=== PATIENT | female | born 1960 | race Two or more races ===

== ENCOUNTER 2016-10-31 11:22 | Inpatient (IN) | payer MEDICAID ==
[~2016-10-31] VITALS: Ht 157.5 cm; Wt 49.9 kg
[2016-10-31] MEDS ORDERED: MORPHINE IR15 MG ORAL (11:36)
[2016-10-31] MEDS ORDERED: MULTIVITAMINS1 EAC2 ORAL (11:36)
[2016-10-31] MEDS ORDERED: GABAPENTIN300 MG ORAL (11:36)
[2016-10-31] MEDS ORDERED: ASPIR 8181 MG ORAL (11:36)
[2016-10-31] MEDS ORDERED: MIRALAX17 GM ORAL (11:36)
[2016-10-31] MEDS ORDERED: Morphine Sulfate 2mg/ml Inj IVP ONE (11:45)
[2016-10-31] MEDS ORDERED: Pantoprazole Inj IVP ONE (11:45)
[2016-10-31 12:00] VITALS: BP 117/60
[2016-10-31] MEDS ORDERED: Tubing IV Cassette IV ONE (12:04)
[2016-10-31 12:10] LABS: MEAN CORPUSCULAR HEMOGLOBIN 29.5 PG (27.0-31.0); MEAN CORPUSCULAR HGB CONC 33.4 G/DL (32.0-36.0); MEAN CORPUSCULAR VOLUME 88 FL (80-99); MEAN PLATELET VOLUME 5.7 FL (6.5-10.1); PLATELET COUNT 523 K/UL (150-450); RED BLOOD COUNT 3.14 M/UL (4.20-5.40); RED CELL DISTRIBUTION WIDTH 14.9 % (11.6-14.8)
[2016-10-31 12:29] LABS: ALANINE AMINOTRANSFERASE 23 U/L (3-33); ALBUMIN/GLOBULIN RATIO 0.7 (1.0-2.7); ANION GAP 28 (5-15); ASPARTATE AMINO TRANSFERASE 74 U/L (5-40); CALCIUM 7.9 mg/dL (8.6-10.2); CARBON DIOXIDE 19 mEQ/L (20-30); CHLORIDE 95 mEQ/L (98-107); CREATININE 0.4 mg/dL (0.5-0.9); GLOMERULAR FILTRATION RATE > 60 mL/min (>60); HEMOLYSIS 1; LIPASE 17 U/L (< 60); POTASSIUM 3.9 mEQ/L (3.4-4.9); SODIUM 142 mEQ/L (135-145); TOTAL PROTEIN 6.4 g/dL (6.6-8.7)
[2016-10-31 12:33] LABS: INR 1.2 (0.9-1.1); PROTHROMBIN TIME 12.6 SEC (9.30-11.50)
[2016-10-31 12:37] LABS: TROPONIN I < 0.30 ng/mL (<=0.30)
[2016-10-31 12:40] LABS: ANISOCYTOSIS 1+; BAND NEUTROPHILS % (MANUAL) 1 % (0-8); BASOPHILS % (MANUAL) 0 % (0-2); EOSINOPHILS % (MANUAL) 0 % (0-3); LYMPHOCYTES % (MANUAL) 4 % (20-45); NEUTROPHILS % (MANUAL) 88 % (45-75); PLATELET ESTIMATE INCREASED; PLATELET MORPHOLOGY NORMAL; TOTAL CELLS COUNTED 100
[2016-10-31 12:41] LABS: HYPOCHROMASIA 1+
[2016-10-31 12:49] LABS: AMMONIA 32 umol/L (11-51)
[2016-10-31 13:41] LABS: APPEARANCE,URINE SLIGHTLY CLOUDY; KETONES,URINE 4+ (NEGATIVE); LEUKOCYTE ESTERASE ,URINE 1+ (NEGATIVE); NITRITE,URINE NEGATIVE (NEGATIVE); PH,URINE 5 (4.5-8.0); PROTEIN,URINE 2+ (NEGATIVE); UROBILINOGEN,URINE NORMAL MG/DL (0.0-1.0)
[2016-10-31 13:59] LABS: BACTERIA,URINE FEW /HPF; RBC,URINE 0-2 /HPF (0 - 2); SQUAMOUS EPITHELIAL CELL,UR FEW /LPF (NONE/OCC)
[2016-10-31] MEDS ORDERED: metroNIDAZOLE 500mg 100 ML IVPB ONE (14:30)
[2016-10-31] MEDS ORDERED: Cefepime HCl 1 GM in D5W 55 ML IVPB ONE (14:30)
[2016-10-31] MEDS ORDERED: Cefepime 1gm vial ONE (14:46)
[2016-10-31 15:20] VITALS: BP 115/72
[2016-10-31] MEDS ORDERED: Morphine Sulfate 4mg/ml Inj IVP ONE (16:15)
[2016-10-31 16:25] LABS: REFLEX LACTIC ACID YES OR NO YES
--- NOTE | 2016-10-31 17:04 | Emergency Room Report ---
History of Present Illness General Chief Complaint: Gastrointestinal Bleed Source: Patient, Family Member, EMS Present Illness HPI The patient was discharged from [facility] last night. She is discharged to home under hospice care. She started vomiting up blood. Paramedics transported the patient here and noted also she has some dark stool coming from the colostomy. The patient has metastatic colon CA. She was told that showed a blockage before being discharged the [facility]. Apparently they did elected not to do any surgical treatment at that time. At this point the patient is requesting that surgical treatment be undertaken if that's what is necessary. She also states that she needs blood transfusions and that also be provided. No apparent cough, CP, headache. Mass R head. Anxious. No belly pain, more pain in leg. Denies fever. Allergies: Coded Allergies: No Known Allergies (Unverified , 10/31/16) Patient History Past Medical History: see triage record, CVA/TIA, other - colon CA Past Surgical History: other - colostomy Social History: Denies: smoking Social History Narrative Hospice care with family Reviewed Nursing Documentation: PMH: Agreed, PSxH: Agreed Nursing Documentation-PMH Hx Cancer: Yes - Colon Review of Systems All Other Systems: negative except mentioned in HPI Physical Exam Vital Signs Date Time Temp Pulse Resp B/P Pulse Ox O2 Delivery O2 Flow Rate FiO2 10/31/16 11:22 125 20 119/70 95 Room Air 10/31/16 12:00 100.1 Sp02 EP Interpretation: reviewed, normal General Appearance: GCS 15, mild distress, Chronically Ill Head: other - large mass R forehead Eyes: bilateral eye PERRL, bilateral eye conjunctivae pale, bilateral eye normal inspection ENT: dry mucus membranes, other - R facial weakness Neck: supple Respiratory: lungs clear, normal breath sounds Cardiovascular #1: tachycardia Cardiovascular #2: 2+ radial (R) Gastrointestinal: no guarding, no rebound, abnormal bowel sounds - high pitched , distended - slightly, other - colostomy Rectal: heme positive stool, other - coffeegrounds Heme + Musculoskeletal: back normal, swelling, other - flaccid R Neurologic: responsive, speech normal, motor weakness - R hamiparesis, oriented - X2 Psychiatric: anxious Skin: pallor Procedures Critical Care Time Critical Care Time Total time: 45 min bedside evaluation and treatment excludes procedures (EKG). Reason for critical care: sepsis, GI bleed, possible SBO, determination of level of care Possible complications: hypotension, hypertension, VA, shock, arrhythmias, metabolic acidosis, end organ damage, respiratory failure. Interventions: family consultations, IV bolus, antibiotics, protonix (make avail blood), repeated evaluations Course: Patient from hospice care with vomit coffeegrounds and passing melena. Fluid bolus. Elevated WBC, antibiotics ordered. Discussion with lab regarding lactate. Xrays c/w SBO, CT ordered. Several discussions with family regarding level of care (wants all done including blood and surgery). Treatment for pain. Improvement. No more evidence of active bleeding. Attempting to get old records from [facility]. Admit ALEXEI. Discussed with surgeon. Consultations: nursing staff, EMS, family, lab, surgeon, admitting MD Performed by: Dr. Ascencio Tolerated well condition = serious Medical Decision Making Diagnostic Impression: Primary Impression: Gastrointestinal hemorrhage Qualified Codes: K92.0 - Hematemesis Additional Impressions: Metastatic colon cancer in female R/O SBO Sepsis Qualified Codes: A41.9 - Sepsis, unspecified organism Pneumonia Qualified Codes: J18.9 - Pneumonia, unspecified organism ER Course Patient with coffeegrounds and melena. H/O met colon ca. DDx: met bleed, PUD, gastritis amongst others. Eval with labs and abd film. Discuss with family and patient regarding blood transfusions. H/H - not need immediate transfusion. WBC high, BC and lactate ordered. Antibiotics ordered. Abd films c/w obstruction. CT ordered. Patient treated for pain in leg. Contact Dr. Mcnulty for admission. Discussed plan and problems with family. Await CT. Unable to tolerate oral contrast. As unable to get records, CT head added with contrast. Contacting Dr. Miguel for consultation. Will see patient later tonight. Prognosis poor. Signed out CTs to Dr. June. Laboratory Tests Test 10/31/16 11:50 10/31/16 13:00 10/31/16 15:40 10/31/16 16:25 White Blood Count 26.0 K/UL (4.8-10.8) *H Red Blood Count 3.14 M/UL (4.20-5.40) L Hemoglobin 9.2 G/DL (12.0-16.0) L Hematocrit 27.6 % (37.0-47.0) L Mean Corpuscular Volume 88 FL (80-99) Mean Corpuscular Hemoglobin 29.5 PG (27.0-31.0) Mean Corpuscular Hemoglobin Concent 33.4 G/DL (32.0-36.0) Red Cell Distribution Width 14.9 % (11.6-14.8) H Platelet Count 523 K/UL (150-450) H Mean Platelet Volume 5.7 FL (6.5-10.1) L Neutrophils (%) (Auto) % (45.0-75.0) Lymphocytes (%) (Auto) % (20.0-45.0) Monocytes (%) (Auto) % (1.0-10.0) Eosinophils (%) (Auto) % (0.0-3.0) Basophils (%) (Auto) % (0.0-2.0) Differential Total Cells Counted 100 Neutrophils % (Manual) 88 % (45-75) H Lymphocytes % (Manual) 4 % (20-45) L Monocytes % (Manual) 7 % (1-10) Eosinophils % (Manual) 0 % (0-3) Basophils % (Manual) 0 % (0-2) Band Neutrophils 1 % (0-8) Platelet Estimate Increased H Platelet Morphology Normal Hypochromasia 1+ Anisocytosis 1+ Prothrombin Time 12.6 SEC (9.30-11.50) H Prothrombin Time INR 1.2 (0.9-1.1) H PTT 28 SEC (23-33) Sodium Level 142 mEQ/L (135-145) Potassium Level 3.9 mEQ/L (3.4-4.9) Chloride Level 95 mEQ/L (98-107) L Carbon Dioxide Level 19 mEQ/L (20-30) L Anion Gap 28 (5-15) H Blood Urea Nitrogen 12 mg/dL (7-23) Creatinine 0.4 mg/dL (0.5-0.9) L Estimate Glomerular Filtration Rate > 60 mL/min (>60) Glucose Level 95 mg/dL (74-106) Calcium Level 7.9 mg/dL (8.6-10.2) L Total Bilirubin 0.6 mg/dL (0.0-1.2) Aspartate Amino Transferase (AST) 74 U/L (5-40) H Alanine Aminotransferase (ALT) 23 U/L (3-33) Alkaline Phosphatase 470 U/L (35-104) H Ammonia 32 umol/L (11-51) Troponin I < 0.30 ng/mL (<=0.30) Total Protein 6.4 g/dL (6.6-8.7) L Albumin 2.7 g/dL (3.5-5.2) L Globulin 3.7 g/dL Albumin/Globulin Ratio 0.7 (1.0-2.7) L Lipase 17 U/L (< 60) Urine Color Yellow Urine Appearance Slightly cloudy Urine pH 5 (4.5-8.0) Urine Specific [place] 1.015 (1.005-1.035) Urine Protein 2+ (NEGATIVE) H Urine Glucose (UA) Negative (NEGATIVE) Urine Ketones 4+ (NEGATIVE) H Urine Occult Blood 1+ (NEGATIVE) H Urine Nitrite Negative (NEGATIVE) Urine Bilirubin Negative (NEGATIVE) Urine Urobilinogen Normal MG/DL (0.0-1.0) Urine Leukocyte Esterase 1+ (NEGATIVE) H Urine RBC 0-2 /HPF (0 - 2) Urine WBC 2-4 /HPF (0 - 2) Urine Squamous Epithelial Cells Few /LPF (NONE/OCC) Urine Bacteria Few /HPF (NONE) Urine Hyaline Casts 2-4 /LPF (NONE) H Lactic Acid Level 2.50 mmol/L (0.66-2.22) H 2.20 mmol/L (0.66-2.22) EKG Diagnostic Results Rate: tachycardiac ST Segments: no acute changes Rhythm Strip Diag. Results EP Interpretation: yes Rhythm: no PVC's, no ectopy, other - ST Chest X-Ray Diagnostic Results EP Interpretation: Yes Findings: no effusion, no pneumothorax, other - retrocardiac infiltrate Number of Views: 1 Other X-Ray Diagnostic Results Other X-Ray Diagnostic Results : X-Ray Ordered: abd EP Interpretation: Yes Findings: other - dilitation, mass, large stomach air, bony mets, L hip surgery Number of Views: 1 CT/MRI/US Diagnostic Results CT/MRI/US Diagnostic Results #1: Imaging Test Ordered: head Impression pending reading CT/MRI/US Diagnostic Results #2: Imaging Test Ordered: abd pelvis Impression pending reading Last Vital Signs Date Time Temp Pulse Resp B/P Pulse Ox O2 Delivery O2 Flow Rate FiO2 10/31/16 18:35 97.2 120 20 113/73 100 Room Air Status: improved Disposition: ADMITTED INPATIENT Condition: Critical Referrals: NON PHYSICIAN (PCP) Wei Ascencio M.D. Oct 31, 2016 17:04
[2016-10-31 17:18] VITALS: BP 112/75
--- NOTE | 2016-10-31 17:33 | Diagnostic Imaging Report ---
Indication: Chest pain Technique: One view of the chest Comparison: none Findings: There is retrocardiac consolidation. Large masses are seen in the left mid and upper lung, and possibly the right lung. The gastric bubble is distended. Impression: Retrocardiac consolidation Bilateral lung masses. Patient reportedly has known history of metastatic colon carcinoma
[2016-10-31 18:30] VITALS: BP 113/73
[2016-10-31 18:40] VITALS: BP 111/62
[2016-10-31 20:00] VITALS: BP 112/61
--- NOTE | 2016-10-31 21:48 | Consultation ---
DATE OF CONSULTATION: 10/31/2016 REQUESTING PHYSICIAN: ER PHYSICIAN. REASON FOR CONSULTATION: Hemoptysis. HISTORY OF PRESENT ILLNESS: This is a 55-year-old female, who was brought to the emergency room by ambulance for vomiting of blood. The patient has a history of advanced metastatic cancer of the colon and she was discharged from the [facility] last night. The son is at bedside stated that prior to the discharge she was coughing and she was vomiting but at home she vomited blood that is why she was brought to the emergency room. It should be noted that the patient had been discharged on home hospice. The son stated that in the last two weeks the patient has been unable to walk and it is not very clear if colostomy had been working. At the present time, there is some liquid stool in the in the colostomy and the patient cannot communicate. We are not sure when was the last time that the bag has been emptied or changed. PAST MEDICAL HISTORY: The son denies allergies, asthma, diabetes, cardiac and renal diseases. She has a history of colon cancer and hypertension. PAST SURGICAL HISTORY: Include exploratory laparotomy and colostomy. Operation on the right shoulder and left leg. MEDICATIONS: Basically she is on narcotics for the pain control and medication for hypertension has been stopped. SOCIAL HISTORY: This is a 55-year-old female with two children. She denies smoking and drinking. REVIEW OF SYSTEMS: Unobtainable but the patient complains of the pain in the leg, abdomen, and back. PHYSICAL EXAMINATION: GENERAL: The patient appeared to be cachectic 55-year-old female, lying on the gurney and continuously coughing. Unable to finish a sentence and speaks very low volume. HEENT: Head is normocephalic. She has a hard mass at the right mandibular angle which seems to be metastasis. Eyes, pupils are equal, round, and respond sluggish. Mouth is clear but dry. NECK: There is no palpable thyromegaly or adenopathy. CHEST: She has rhonchi all over. HEART: There is no gallop or murmur. S1 and S2 are within normal limits. ABDOMEN: Soft. She has a scar of the midline incision from above the umbilicus to the pubis. She has colostomy on the left lower quadrant with a large stomal hernia which is reducible. Bowel sounds are hypoactive. GENITOURINARY: She has indwelling Smith catheter. EXTREMITIES: She has severe edema of the right arm and left leg. LABORATORY AND DIAGNOSTIC DATA: CBC has shown a WBC of 26,000 with a shift. Chemistry is almost within normal limits. CAT scan of the abdomen has shown metastatic disease and dilated small bowel. ASSESSMENT: 1. Advanced metastatic colon cancer. 2. Gastrointestinal bleed. RECOMMENDATIONS: This patient has advanced cancer and she is already on hospice so she to be kept comfortable with intravenous fluid and Motrin. If she vomits anymore she requires NG tube placement beside that she can benefit from GI consultation. Louie Miguel M.D. DR: Katelynn JOB#: [id number] CC:
[2016-11-01] VITALS: BP 114/59
[2016-11-01] MEDS: metroNIDAZOLE 500mg 100 ML IVPB SCH ×3 (01:38→16:00)
[2016-11-01] MEDS: NS w/KCl 20mEq 1,000 ML IV SCH ×2 (01:38→12:16)
[2016-11-01] MEDS: Vancomycin 750mg/D5W 275ml IVPB SCH ×6 (02:36→17:00)
--- NOTE | 2016-11-01 03:28 | History and Physical Report ---
DATE OF ADMISSION: 10/31/2016 REASON FOR ADMISSION: Hematemesis. HISTORY OF PRESENT ILLNESS: This is a female, age 55 with metastatic colon cancer. She was just discharged from [facility] yesterday. Apparently after being treated for complications of her malignancy, she had been on active treatment in the past, but because of advanced metastatic disease had been on hospice presently, however, her code status is unclear. The patient has been coughing and vomiting with some some bloody emesis noted as well. She has a colostomy with liquid stool. PAST MEDICAL HISTORY: Hypertension and status post colostomy. REVIEW OF SYSTEMS: Otherwise noncontributory. ALLERGIES: None known. PHYSICAL EXAMINATION: GENERAL: Ill-appearing. VITAL SIGNS: Temperature 100.1, blood pressure 112/75, heart rate 124, and respiratory rate 25. HEENT: Oropharynx clear with no thrush. NECK: Supple. LUNGS: With coarse breath sounds and rhonchi. CARDIAC: Regular rhythm. Rapid rate. Normal S1, S2. ABDOMEN: Colostomy with brown stool. EXTREMITIES: With trace edema right greater than left of both upper and lower extremities. LABORATORY AND DIAGNOSTIC DATA: Chest x-ray reveals diffuse masses. Potassium 3.9, BUN 12, and creatinine 0.4. Troponin negative. Lactic acid is 2.5. Albumin 2.7. White count is 26, hemoglobin 9.2. Urinalysis, no active sediment. IMPRESSION: 1. Hematemesis. 2. Metastatic colon cancer. 3. Possible postobstructive pneumonia. 4. Severe protein-calorie malnutrition. 5. Anemia. 6. Leukocytosis. PLAN: 1. Eli culture. 2. Bronchodilators. 3. Empiric antibiotics. 4. Serial hemoglobin. 5. Endoscopy. 6. Clarify hospice care status. Wei Mcnulty M.D. DR: MARY KAY JOB#: [id number] CC:
[2016-11-01] MEDS ORDERED: Cefepime 1gm vial ONE (03:46)
[2016-11-01] MEDS: Cefepime HCl 1 GM in D5W 55 ML IVPB SCH ×2 (03:49→15:00)
[2016-11-01 04:00] VITALS: BP 117/60
[2016-11-01 05:45] LABS: MEAN CORPUSCULAR HEMOGLOBIN 29.3 PG (27.0-31.0); MEAN CORPUSCULAR HGB CONC 32.8 G/DL (32.0-36.0); MEAN CORPUSCULAR VOLUME 89 FL (80-99); MEAN PLATELET VOLUME 5.3 FL (6.5-10.1); PLATELET COUNT 409 K/UL (150-450); RED BLOOD COUNT 2.66 M/UL (4.20-5.40); RED CELL DISTRIBUTION WIDTH 16.6 % (11.6-14.8)
[2016-11-01 05:59] LABS: WHITE BLOOD COUNT 23.5 K/UL (4.8-10.8)
[2016-11-01 06:07] LABS: ALANINE AMINOTRANSFERASE 23 U/L (3-33); ALBUMIN/GLOBULIN RATIO 0.8 (1.0-2.7); ANION GAP 26 (5-15); ASPARTATE AMINO TRANSFERASE 75 U/L (5-40); CALCIUM 7.5 mg/dL (8.6-10.2); CARBON DIOXIDE 19 mEQ/L (20-30); CHLORIDE 103 mEQ/L (98-107); CREATININE 0.3 mg/dL (0.5-0.9); GLOMERULAR FILTRATION RATE > 60 mL/min (>60); HEMOLYSIS 0; POTASSIUM 3.3 mEQ/L (3.4-4.9); SODIUM 148 mEQ/L (135-145); TOTAL PROTEIN 5.6 g/dL (6.6-8.7)
[2016-11-01 08:00] VITALS: BP 116/47
[2016-11-01 08:22] LABS: ANISOCYTOSIS 1+; BAND NEUTROPHILS % (MANUAL) 5 % (0-8); BASOPHILS % (MANUAL) 0 % (0-2); EOSINOPHILS % (MANUAL) 0 % (0-3); HYPOCHROMASIA 1+; LYMPHOCYTES % (MANUAL) 5 % (20-45); NEUTROPHILS % (MANUAL) 82 % (45-75); PLATELET ESTIMATE ADEQUATE; PLATELET MORPHOLOGY NORMAL; POLYCHROMASIA 1+; TOTAL CELLS COUNTED 100
--- NOTE | 2016-11-01 08:34 | General Progress Note ---
Assessment/Plan Assessment/Plan GI Consult Dictated Discussed at length with son and 2 other family They want to continue Hospice care No EGD/labs/transfusion Would Rx with PRN sq Ativan here and at home Would coordinate goals with frame operator to avoid re admission Rahul De La Torre MD Subjective Allergies: Coded Allergies: No Known Allergies (Unverified , 10/31/16) Objective Last 24 Hour Vital Signs Date Time Temp Pulse Resp B/P Pulse Ox O2 Delivery O2 Flow Rate FiO2 11/01/16 04:20 121 11/01/16 04:00 98.3 117 24 117/60 94 Nasal Cannula 2.0 11/01/16 00:00 123 11/01/16 00:00 98.1 124 24 114/59 94 Nasal Cannula 2.0 10/31/16 20:00 97.9 125 20 112/61 96 Nasal Cannula 2.0 10/31/16 20:00 121 10/31/16 18:40 97.9 119 18 111/62 94 Nasal Cannula 2.0 10/31/16 18:35 97.2 120 20 113/73 100 Room Air 10/31/16 18:30 97.2 120 20 113/73 100 Room Air 10/31/16 17:18 100.1 124 25 112/75 100 Room Air 10/31/16 15:20 97.2 121 20 115/72 96 Room Air 10/31/16 12:00 100.1 120 24 117/60 96 Room Air 10/31/16 11:22 125 20 119/70 95 Room Air Intake and Output 10/31/16 11/01/16 19:00 07:00 Intake Total 100 ml 1565.000 ml Output Total 1200 ml Balance 100 ml 365.000 ml Intake Oral 100 ml IV Total 1565.000 ml Output Urine Total 1200 ml # Bowel Movements 2 Laboratory Tests 10/31/16 11:50: White Blood Count 26.0*H, Red Blood Count 3.14L, Hemoglobin 9.2L, Hematocrit 27.6L, Mean Corpuscular Volume 88, Mean Corpuscular Hemoglobin 29.5, Mean Corpuscular Hemoglobin Concent 33.4, Red Cell Distribution Width 14.9H, Platelet Count 523H, Mean Platelet Volume 5.7L, Neutrophils (%) (Auto) , Lymphocytes (%) (Auto) , Monocytes (%) (Auto) , Eosinophils (%) (Auto) , Basophils (%) (Auto) , Differential Total Cells Counted 100, Neutrophils % ( Manual) 88H, Lymphocytes % (Manual) 4L, Monocytes % (Manual) 7, Eosinophils % ( Manual) 0, Basophils % (Manual) 0, Band Neutrophils 1, Platelet Estimate IncreasedH, Platelet Morphology Normal, Hypochromasia 1+, Anisocytosis 1+, Prothrombin Time 12.6H, Prothromb Time International Ratio 1.2H, Activated Partial Thromboplast Time 28, Sodium Level 142, Potassium Level 3.9, Chloride Level 95L, Carbon Dioxide Level 19L, Anion Gap 28H, Blood Urea Nitrogen 12, Creatinine 0.4L, Estimat Glomerular Filtration Rate > 60, Glucose Level 95, Calcium Level 7.9L, Total Bilirubin 0.6, Aspartate Amino Transf (AST/SGOT) 74H, Alanine Aminotransferase (ALT/SGPT) 23, Alkaline Phosphatase 470H, Ammonia 32, Troponin I < 0.30, Total Protein 6.4L, Albumin 2.7L, Globulin 3.7, Albumin/ Globulin Ratio 0.7L, Lipase 17 10/31/16 13:00: Urine Color Yellow, Urine Appearance Slightly cloudy, Urine pH 5, Urine Specific [place] 1.015, Urine Protein 2+H, Urine Glucose (UA) Negative, Urine Ketones 4+H, Urine Occult Blood 1+H, Urine Nitrite Negative, Urine Bilirubin Negative, Urine Urobilinogen Normal, Urine Leukocyte Esterase 1+H, Urine RBC 0-2 , Urine WBC 2-4, Urine Squamous Epithelial Cells Few, Urine Bacteria Few, Urine Hyaline Casts 2-4H 10/31/16 15:40: Lactic Acid Level 2.50H 10/31/16 16:25: Lactic Acid Level 2.20 11/01/16 04:00: White Blood Count 23.5*H, Red Blood Count 2.66L, Hemoglobin 7.8L, Hematocrit 23.8L, Mean Corpuscular Volume 89, Mean Corpuscular Hemoglobin 29.3, Mean Corpuscular Hemoglobin Concent 32.8, Red Cell Distribution Width 16.6H, Platelet Count 409, Mean Platelet Volume 5.3L, Neutrophils (%) (Auto) , Lymphocytes (%) (Auto) , Monocytes (%) (Auto) , Eosinophils (%) (Auto) , Basophils (%) (Auto) , Differential Total Cells Counted 100, Neutrophils % ( Manual) 82H, Lymphocytes % (Manual) 5L, Monocytes % (Manual) 8, Eosinophils % ( Manual) 0, Basophils % (Manual) 0, Band Neutrophils 5, Platelet Estimate Adequate, Platelet Morphology Normal, Polychromasia 1+, Hypochromasia 1+, Anisocytosis 1+, Sodium Level 148H, Potassium Level 3.3L, Chloride Level 103, Carbon Dioxide Level 19L, Anion Gap 26H, Blood Urea Nitrogen 9, Creatinine 0.3L , Estimat Glomerular Filtration Rate > 60, Glucose Level 93, Calcium Level 7.5L , Magnesium Level 2.0, Total Bilirubin 0.5, Aspartate Amino Transf (AST/SGOT) 75H, Alanine Aminotransferase (ALT/SGPT) 23, Alkaline Phosphatase 458H, Total Protein 5.6L, Albumin 2.5L, Globulin 3.1, Albumin/Globulin Ratio 0.8L Height (Feet): 5 Height (Inches): 2.00 Weight (Pounds): 110 RAHUL DE LA TORRE Nov 01, 2016 08:34
[2016-11-01] MEDS ORDERED: Pantoprazole Inj IVP SCH (09:00)
--- NOTE | 2016-11-01 09:09 | Diagnostic Imaging Report ---
Indications: Right-sided weakness/hemiparesis, history of colon cancer Technique: Continuous helical CT imaging of the brain was performed with automatic exposure control both before and after intravenous administration of nonionic iodine contrast, on a Siemens sensation [address] scanner. Axial and coronal images were reconstructed at 5 mm slice thickness and interval. CTDI volume(s): 70x2, 17, 116, 19 mGy Total DLP: 4042 mGy-cm (Includes CT abdomen pelvis) Findings: Comparison: None Lytic destructive lesion involves the right frontoparietal skull, from which arises a 4.4 x 7.7 cm soft tissue mass. Similar focal process high in the left parietal skull gives rise to a 4.3 x 2.5 x 4.7 cm soft tissue mass. A third lesion lower in the left parietal skull results in a 2.2 x 1.3 x 1.8 cm lesion. All 3 lesions are similar in appearance, demonstrating heterogeneous enhancement, containing irregular calcifications, extending into the overlying scalp and subjacent extra-axial space. The 2 larger lesions results in mild mass effect upon the underlying brain parenchyma without obvious invasion. No evidence of intra-axial mass, hemorrhage, other attenuation abnormality or abnormal enhancement, midline shift, hydrocephalus or increased intracranial pressure. Additional lytic destructive lesions involve the right side of the skull base and left side of the C1 vertebra, incompletely imaged. Visualized paranasal sinuses and left mastoid air cells are clear. Right mastoid air cells are opacified. IMPRESSION: Multiple lytic destructive calvarial lesions several of which give rise to prominent enhancing soft tissue masses, most compatible with metastatic neoplasm versus multiple myeloma. Extension of above into extra-axial space with mild mass effect but no obvious parenchymal invasion. No midline shift. Right mastoiditis MRI of the brain without and with gadolinium, CT scan or MRI of the cervical spine, radionuclide total body bone scan recommended for further evaluation. This correlates with Dr. Eli's preliminary report.
[2016-11-01 09:20] LABS: REFLEX LACTIC ACID YES OR NO YES
--- NOTE | 2016-11-01 09:35 | Diagnostic Imaging Report ---
Indications: Abdominal pain, hematemesis, history of colon carcinoma Technique: Continuous helical CT imaging of the abdomen and pelvis was performed with automatic exposure control following administration of nonionic IV contrast only, on a Siemens sensation [address] scanner. Axial and coronal images were reconstructed at 5 mm slice thickness. No oral contrast was administered per requesting physician's order, reason not stated, presumably due to vomiting. CTDI volume(s): 70x2, 17, 116, 19 mGy Total DLP: 4042 mGy-cm (Includes CT head) Findings: Comparison: None Lack of oral contrast limits evaluation of gastrointestinal tract. Stomach and small bowel are markedly, diffusely dilated with air-fluid levels to level of within ventral hernia associated with left lower quadrant colostomy. Loop of small bowel exiting the hernia and small bowel distal to this are collapsed. Appendix unremarkable. Gas and feces throughout nondilated colon to level of left lower quadrant colostomy. Colon distal to colostomy collapsed. Suggestion of multilobulated mass within the rectum.. No other obvious mural thickening. Diffuse mesenteric edema, mild ascites. No obvious extraluminal gas or loculated fluid collections. Multiple large heterogeneously hypoenhancing masses throughout the liver. Masses of similar appearance in bilateral adrenal glands, spleen, adjacent to pancreas, in midline anterior abdominal and pelvic shearer as well as adjacent to colostomy, and pelvis and adjacent to rectum, in left iliopsoas muscle with adjacent focal destruction of left iliac bone, in bilateral proximal thigh musculature with adjacent lytic destruction of bilateral inferior ischiopubic rami and proximal femurs, in right arm musculature with adjacent lytic destruction of right humerus, in the T10 and L4 vertebral bodies, both with compression fractures, in both sacral wings, in both lung bases with adjacent lytic destruction of in the posterior lateral aspect of left fifth rib, in the tip of the right scapula and overlying subcutaneous soft tissues. Fixation hardware has been placed within the right humerus and left femur. Smith catheter is present within a collapsed urinary bladder. Diffuse body wall edema is present. Small left pleural effusion is present. IMPRESSION: Findings compatible with high-grade small bowel obstruction with level of transition within parastomal hernia left lower quadrant anterior abdominal wall. Suggestion of rectal mass suspicious for primary colorectal neoplasm Multiple lesions described compatible with disseminated metastatic neoplasm versus multiple myeloma. One of these lesions resides within/adjacent to the left lower quadrant colostomy. Adherence to the small bowel within stomal hernia not excludable. Associated pathologic compression fractures of T10 and L4 vertebral bodies. Ascites, mesenteric and diffuse body wall edema all compatible with anasarca, though small bowel obstruction may contribute Left pleural effusion may be secondary to anasarca, ascites, reactive to adjacent lung masses, or actual pleural invasion/involvement by neoplasm. Prior ORIF right humerus and left femur Smith catheter in place Contrast-enhanced CT scan the thorax may be of benefit in further evaluation, as clinically indicated This correlates with Dr. Eli's preliminary report.
--- NOTE | 2016-11-01 11:40 | Wound Care Consultation ---
Wound Assessment Wound Assessment #1: Wound Number: #1 Wound Present on Admission: Yes New Wound: No Status Change of Wound: No Wound Location Body Site: sacral Wound Type: pressure ulcer Eric Test: Does not Eric Pressure Ulcer Stage: III - scattered Wound Thickness: Full Thickness Wound Length: 4.0 Wound Width: 3.0 Wound Depth: 0.3 Percent of Wound [place]/Red: 100 Wound Drainage Description: Serosanguineous Wound Drainage Amount: Scant Wound Drainage Odor: None/Absent Tissue Surrounding Wound: Macerated Wound General Appearance: Reddened Wound Assessment #2: Wound Number: #2 Wound Present on Admission: Yes - colostomy site New Wound: No Status Change of Wound: No Wound Location Body Site Modif: left, lower Wound Location Body Site: abdomen Wound Type: other - colostomy site Wound Length: 10.0 Wound Width: 8.0 Wound Drainage Description: Brown - clear Wound Drainage Amount: Moderate - about 20 cc noted upon colostomy bag change. Wound Drainage Odor: None/Absent Wound Comment #1 Sacral pressure ulcer scattered stage III. #2 Left lower abdomen colostomy site noted with large stomal hernia 10cm x 8cm. Recommendation -Low air loss overlay mattress (SPR). -Local wound care as ordered. -Turn and reposition. -Keep clean and dry. -Avoid sheer and friction. -Optimize nutrition. -Heel Protectors. -Offload affected sacral site and heels. -Provide colostomy care- cleanse with normal saline, pat dry , apply no sting barrier film skin protectant, apply cut to fit one piece colostomy bag, change q 3 days and PRN if soiled/dislodged. -Assess and notify MD for any changes of condition noted. ANIL BARAKAT Nov 01, 2016 11:40
[2016-11-01 12:00] VITALS: BP 109/47
[2016-11-01] MEDS ORDERED: LORazepam 1mg tab SL PRN (12:15)
--- NOTE | 2016-11-01 13:00 | Diagnostic Imaging Report ---
Indication: Abdominal pain Technique: Supine view of the abdomen Comparison: none Findings: Stomach is distended. Proximal small bowel loops are distended. There is stool in the colon. There is left hip hardware. No unusual masses or calcifications Impression: Distended stomach and proximal small bowel. While possibly on the basis of ileus, findings are concerning for small bowel obstruction. Correlate with clinical findings, consider CT for better characterization
--- NOTE | 2016-11-01 13:40 | General Surgery Progress Note ---
General Surgery-Progress Note Subjective Symptoms: pain same Objective Last 24 Hour Vital Signs Date Time Temp Pulse Resp B/P Pulse Ox O2 Delivery O2 Flow Rate FiO2 11/01/16 08:00 97.9 121 19 116/47 94 Nasal Cannula 1.5 11/01/16 04:20 121 11/01/16 04:00 98.3 117 24 117/60 94 Nasal Cannula 2.0 11/01/16 00:00 123 11/01/16 00:00 98.1 124 24 114/59 94 Nasal Cannula 2.0 10/31/16 20:00 97.9 125 20 112/61 96 Nasal Cannula 2.0 10/31/16 20:00 121 10/31/16 18:40 97.9 119 18 111/62 94 Nasal Cannula 2.0 10/31/16 18:35 97.2 120 20 113/73 100 Room Air 10/31/16 18:30 97.2 120 20 113/73 100 Room Air 10/31/16 17:18 100.1 124 25 112/75 100 Room Air 10/31/16 15:20 97.2 121 20 115/72 96 Room Air I&O Intake and Output 10/31/16 11/01/16 19:00 07:00 Intake Total 100 ml 1565.000 ml Output Total 1200 ml Balance 100 ml 365.000 ml Intake Oral 100 ml IV Total 1565.000 ml Output Urine Total 1200 ml # Bowel Movements 2 Respiratory: other - rhonchi bilateral Abdomen: soft, flat, tenderness, absent bowel sounds Extremities: edema Laboratory Tests Test 10/31/16 15:40 10/31/16 16:25 11/01/16 04:00 11/01/16 08:45 Lactic Acid Level 2.50 mmol/L (0.66-2.22) H 2.20 mmol/L (0.66-2.22) 2.30 mmol/L (0.66-2.22) H White Blood Count 23.5 K/UL (4.8-10.8) *H Red Blood Count 2.66 M/UL (4.20-5.40) L Hemoglobin 7.8 G/DL (12.0-16.0) L Hematocrit 23.8 % (37.0-47.0) L Mean Corpuscular Volume 89 FL (80-99) Mean Corpuscular Hemoglobin 29.3 PG (27.0-31.0) Mean Corpuscular Hemoglobin Concent 32.8 G/DL (32.0-36.0) Red Cell Distribution Width 16.6 % (11.6-14.8) H Platelet Count 409 K/UL (150-450) Mean Platelet Volume 5.3 FL (6.5-10.1) L Neutrophils (%) (Auto) % (45.0-75.0) Lymphocytes (%) (Auto) % (20.0-45.0) Monocytes (%) (Auto) % (1.0-10.0) Eosinophils (%) (Auto) % (0.0-3.0) Basophils (%) (Auto) % (0.0-2.0) Differential Total Cells Counted 100 Neutrophils % (Manual) 82 % (45-75) H Lymphocytes % (Manual) 5 % (20-45) L Monocytes % (Manual) 8 % (1-10) Eosinophils % (Manual) 0 % (0-3) Basophils % (Manual) 0 % (0-2) Band Neutrophils 5 % (0-8) Platelet Estimate Adequate Platelet Morphology Normal Polychromasia 1+ Hypochromasia 1+ Anisocytosis 1+ Sodium Level 148 mEQ/L (135-145) H Potassium Level 3.3 mEQ/L (3.4-4.9) L Chloride Level 103 mEQ/L (98-107) Carbon Dioxide Level 19 mEQ/L (20-30) L Anion Gap 26 (5-15) H Blood Urea Nitrogen 9 mg/dL (7-23) Creatinine 0.3 mg/dL (0.5-0.9) L Estimat Glomerular Filtration Rate > 60 mL/min (>60) Glucose Level 93 mg/dL (74-106) Calcium Level 7.5 mg/dL (8.6-10.2) L Magnesium Level 2.0 mg/dL (1.7-2.5) Total Bilirubin 0.5 mg/dL (0.0-1.2) Aspartate Amino Transf (AST/SGOT) 75 U/L (5-40) H Alanine Aminotransferase (ALT/SGPT) 23 U/L (3-33) Alkaline Phosphatase 458 U/L (35-104) H Total Protein 5.6 g/dL (6.6-8.7) L Albumin 2.5 g/dL (3.5-5.2) L Globulin 3.1 g/dL Albumin/Globulin Ratio 0.8 (1.0-2.7) L Test 11/01/16 11:45 Lactic Acid Level 2.70 mmol/L (0.66-2.22) H Assessment Additional Comments metastatic colo-rectal cancer with SBO Plan Additional Comments Had long discussion with radiologist, she has a large metastatic lesion next to colostomy which has invaded small bowel in parastomal hernia causing SBO. She is on hospice no surgery JAYDA ALCALA Nov 01, 2016 13:40
[2016-11-01 16:00] VITALS: BP 131/70
--- NOTE | 2016-11-01 16:57 | Progress Note ---
DATE: 11/01/2016 INTERNAL MEDICINE PROGRESS NOTE SUBJECTIVE: Case was discussed with family members. They are interested in a hospice care level and comfort measures only. financial services manager and vp digital marketing social media and crm are aware and setting up this service. Apparently, the patient was already in the hospice, but they were not equipped to take care of her at home and suggested that the patient come to the emergency room yesterday. OBJECTIVE: VITAL SIGNS: Blood pressure 116/47, pulse 120, respirations 19, and afebrile. LUNGS: Bilateral breath sounds. ABDOMEN: Slightly distended, but soft. CARDIAC: Regular rhythm. Rapid rate. Normal S1 and S2. EXTREMITIES: With trace edema. IMPRESSION: End-stage metastatic colon cancer with obstruction. PLAN: 1. Analgesics. 2. Antiemetics. 3. Comfort care. 4. No additional laboratory draws. 5. Hospice is being consulted. Wei Mcnulty M.D. DR: BUDDY JOB#: [id number] CC:
[2016-11-01 20:00] VITALS: BP 123/68
[2016-11-01] MEDS ORDERED: Tubing IV Secondary IV ONE (21:39)
[2016-11-02 12:26] LABS: OTHERS PATHOLOGIST COMMENT
--- NOTE | 2016-11-02 19:25 | Discharge Summary ---
Discharge Summary Hospital Course Date of Admission Oct 31, 2016 at 15:10 Date of Discharge Nov 01, 2016 at 21:40 Admitting Diagnosis sepsis/GI bleed HPI Mirella Sanon is a 55 year old female who was admitted on Oct 31, 2016 at 15: 10 for Sepsis,Gastrointestinal Bleed Hospital Course [id number] Discharge Discharge Disposition Patient was discharged to home with Hospice Discharge Diagnoses: Sarah Phelan NP Nov 02, 2016 19:25
--- NOTE | 2016-11-03 00:07 | Discharge Summary 2 SIG ---
DATE OF ADMISSION: 10/31/2016 DATE OF DISCHARGE: 11/01/2016 CONSULTANTS: 1. Louie Miguel M.D. 2. Rahul De La Torre M.D. BRIEF HOSPITAL COURSE: The patient is a 55-year-old female with metastatic colon CA, who was recently discharged from [facility] the day prior after being treated for complications of her malignancy. She has been on active treatment in the past, but because of advanced metastatic disease, was discharged home on hospice. She had been coughing and vomiting with bloody emesis. She had a colostomy with liquid stools. She was seen by General Surgery and GI. Family was clear that they want to continue with hospice care. No esophagogastroduodenoscopy or laboratories or transfusion. No surgery and interested in comfort measures only. communications program manager and social service to set up the service. The patient was already in hospice, but they were not equipped to take care of her at home. The patient was eventually discharged home under hospice. FINAL DIAGNOSES: 1. End-stage metastatic colon cancer with obstruction. 2. Hospice care. 3. Hematemesis. 4. Severe protein-calorie malnutrition. 5. Anemia. 6. Leukocytosis. Wei Mcnulty M.D. I have been assigned to dictate discharge summary on this account and I was not involved in the patient's management. Sarah Phelan N.P. DR: EBONY JOB#: [id number] CC: BRISA
--- NOTE | 2016-11-03 16:13 | Cardiology Report ---
APPROVED REPORT EKG Measurement Heart [id number] Sinus tachycardia Nonspecific T wave abnormality Abnormal ECG
== END 2016-11-01 21:40 | disposition hospice, home (50) | DRG 694 ==
LOC: EDBD 11:22 → EMR 11:43 → 2W 15:10 → EDBEDREQ 15:20
DX: C79.9 Secondary malignant neoplasm of unspecified site (principal); E43 Unspecified severe protein-calorie malnutrition; K92.0 Hematemesis; K56.69 Other intestinal obstruction; L89.153 Pressure ulcer of sacral region, stage 3; C18.9 Malignant neoplasm of colon, unspecified; I10 Essential (primary) hypertension; D64.9 Anemia, unspecified; D72.829 Elevated white blood cell count, unspecified; K94.09 Other complications of colostomy; Z51.5 Encounter for palliative care; Z68.20 Body mass index [BMI] 20.0-20.9, adult
CPT/HCPCS: 36415; 70470; 71010; 74000; 74177; 80053; 81003; 82140; 83605; 83690; 83735; 84484; 85007; 85025; 85610; 85730; 86850; 86900; 86901; 86920; 87040; 87081; 93005; J2405